=== PATIENT | male | born 1945 | race Two or more races ===

== ENCOUNTER 2018-02-24 11:53 | Day surgery (SDC) | payer MEDICARE, OTHER ==
[2018-02-24] MEDS: LIDOCAINE 1% (MPF) 30 ML INJ
[2018-02-24] MEDS: BUPIVACAINE 0.5% (SDV) 30 ML INJ
[2018-02-24] MEDS ORDERED: CEFAZOLIN 2 GM/50 ML (PMX) 50 ML IVPB (13:30)
[2018-02-24] MEDS ORDERED: LACTATED RINGER'S 1,000 ML IV* (13:30)
[2018-02-24] MEDS ORDERED: LIDOCAINE 2% (SDV) 5 ML INJ (16:31)
[2018-02-24] MEDS ORDERED: PROPOFOL 20 ML (16:31)
[2018-02-24] MEDS ORDERED: FAMOTIDINE 20 MG INJ (16:43)
[2018-02-24] MEDS ORDERED: CEFAZOLIN 1 GM INJ (16:43)
[2018-02-24] MEDS ORDERED: ONDANSETRON 4 MG INJ (16:43)
[2018-02-24] MEDS ORDERED: MIDAZOLAM 1 MG/ML 2 ML INJ (16:46)
[2018-02-24] MEDS ORDERED: FENTAnyl 50 MCG/ML VIAL (16:47)
[2018-02-24] MEDS ORDERED: ROPIVACAINE 0.2% 20 ML VIAL (16:51)
[2018-02-24] MEDS ORDERED: ACETAMINOPHEN 1000MG/100ML IV 100 ML (18:13)
[2018-02-24] MEDS ORDERED: HYDROmorphONE 1 MG/5 ML IV SYRINGE IV ×3 (19:04→19:30)
[2018-02-24] MEDS: HYDROmorphONE 1 MG/5 ML IV SYRINGE IV (19:20)
[2018-02-24] MEDS ORDERED: FENTAnyl 50 MCG/ML VIAL IV (19:30)
[2018-02-24] MEDS ORDERED: PROCHLORPERAZINE 10 MG INJ IV (19:30)
[2018-02-24] MEDS ORDERED: ONDANSETRON 4 MG INJ IV (19:30)
[2018-02-24] MEDS ORDERED: OXYCODONE/ACETAMINOPHEN (5/325) TAB PO (19:30)
[2018-02-24] MEDS ORDERED: MEPERIDINE 25 MG INJ IV (19:30)
[2018-02-24] MEDS ORDERED: DIPHENHYDRAMINE 50 MG INJ IV (19:30)
== END 2018-02-24 20:00 | disposition home or self-care (01) ==
LOC: SDS 11:53
DX: M13.832 Other specified arthritis, left wrist (principal); G56.02 Carpal tunnel syndrome, left upper limb; S66.317D Strain of extensor muscle, fascia and tendon of left little finger at wrist and hand level, subsequent encounter; X58.XXXD Exposure to other specified factors, subsequent encounter; M65.832 Other synovitis and tenosynovitis, left forearm; I10 Essential (primary) hypertension
CPT/HCPCS: 25240; 71045; 82962; 88305; 88311